=== PATIENT | male | born 1965 | race Asian ===

== ENCOUNTER 2019-10-12 22:12 | Emergency (ER) | payer OTHER ==
[~2019-10-12] VITALS: Ht 175.3 cm; Wt 102.1 kg
[2019-10-12] MEDS ORDERED: AMLO10 PO (22:21)
[2019-10-12] MEDS ORDERED: LOW DOSE ASPIRI81 M1 PO (22:21)
[2019-10-12] MEDS ORDERED: ATOR80 PO (22:21)
[2019-10-12] MEDS ORDERED: PANT20 PO (22:22)
[2019-10-12] MEDS ORDERED: NITR.4SL SL (22:22)
[2019-10-12 22:38] LABS: BASOPHILS ABSOLUTE AUTO 0.07 K/mm3 (0.00-0.23); BASOPHILS PERCENT AUTO 1 % (0-2); EOSINOPHILS ABSOLUTE AUTO 0.19 K/mm3 (0.00-0.68); EOSINOPHILS PERCENT AUTO 2 % (0-6); Hematocrit 46.2 % (37.0-53.0); Hemoglobin 16.1 g/dL (13.5-17.5); IMMATURE GRAN ABSOLUTE AUTO 0.04 K/mm3 (0.00-0.10); IMMATURE GRAN PERCENT AUTO 1 % (0-1); LYMPHOCYTES ABSOLUTE AUTO 2.72 K/mm3 (0.84-5.20); LYMPHOCYTES PERCENT AUTO 32 % (21-46); MONOCYTES ABSOLUTE AUTO 0.91 K/mm3 (0.16-1.47); MONOCYTES PERCENT AUTO 11 % (4-13); Mean Corpuscular HGB 32.1 pg (26.0-34.0); Mean Corpuscular HGB Conc 34.8 g/dL (31.5-36.5); Mean Corpuscular Volume 92 fL (80-100); Mean Platelet Volume 9.6 fL (9.1-12.4); NEUTROPHILS ABSOLUTE AUTO 4.48 K/mm3 (1.96-9.15); NEUTROPHILS PERCENT AUTO 53 % (41-73); Platelet Count 227 K/mm3 (150-400); RDW Coefficient Variation 12.3 % (11.7-14.2); RDW Standard Deviation 41.8 fL (35.1-46.3); Red Blood Cell Count 5.01 M/mm3 (4.30-5.90); White Blood Cell Count 8.41 K/mm3 (4.00-11.30)
[2019-10-12 22:58] LABS: Alanine Aminotransfer (ALT/SGP 35 U/L (12-78); Albumin, Blood 4.2 g/dL (3.4-5.0); Albumin/Globulin Ratio 1.1 (0.8-1.8); Alk Phos 124 U/L (50-136); Anion Gap 5 mmol/L (6-16); Aspartate Aminotrans (AST/SGOT 25 U/L (12-37); Bilirubin, Total 0.4 mg/dL (0.1-1.0); Blood Urea Nitrogen 21 mg/dL (8-24); Bun/Creatinine Ratio 18.8 (12.0-20.0); CO2, Blood 28 mmol/L (21-32); Calcium, Blood 8.8 mg/dL (8.5-10.1); Chloride, Blood 106 mmol/L (98-108); Creatinine, Blood 1.12 mg/dL (0.60-1.20); Globulin, Blood 3.9 g/dL (2.2-4.0); Glomerular Filtration Rate >60 (60-); Glucose, Blood 115 mg/dL (70-99); Potassium, Blood 4.2 mmol/L (3.5-5.5); Sodium, Blood 139 mmol/L (136-145); Total Protein, Blood 8.1 g/dL (6.4-8.2); Troponin I <0.015 ng/mL (0.000-0.040)
[2019-10-15] MEDS ORDERED: Zithromax250 MG PO (08:42)
== END 2019-10-13 02:40 | disposition home or self-care (01) ==
LOC: ER 22:12
PROVIDERS: Emergency Medicine
DX: R07.9 Chest pain, unspecified (principal); Z88.8 Allergy status to other drugs, medicaments and biological substances; Z79.899 Other long term (current) drug therapy; Z79.82 Long term (current) use of aspirin; Z87.891 Personal history of nicotine dependence
CPT/HCPCS: 71046; 80053; 84484; 85025; 93005; 93010; 96374; 96375; 99285-25; J1885; J2270; J2405

== ENCOUNTER 2020-03-27 10:45 | Day surgery (SDC) | payer OTHER ==
[~2020-03-27] VITALS: Ht 175.3 cm; Wt 102.4 kg
[~2020-03-27 10:45] MED LIST: AMLO10 PO; ATOR80 PO; LOW DOSE ASPIRI81 M1 PO; NITR.4SL SL; PANT20 PO; Zithromax250 MG PO
[2020-03-27] MEDS ORDERED: DUTOPROL (11:19)
[2020-03-27] MEDS ORDERED: EZET10 (11:20)
[2020-03-27] MEDS ORDERED: LISI20 (11:20)
[2020-03-27] MEDS ORDERED: Isosorbide Mono30 MG (11:22)
[2020-03-27] MEDS ORDERED: MICROZIDE12.5 MG (11:22)
== END 2020-03-27 12:50 | disposition home or self-care (01) ==
LOC: ORSCSDS 10:45
PROVIDERS: Internal Medicine Gastroenterology
PROC: 0DJD8ZZ Inspection of Lower Intestinal Tract, Via Natural or Artificial Opening Endoscopic (ICD-10-PCS; principal; 2020-03-27 12:00)
DX: R10.32 Left lower quadrant pain (principal); K64.8 Other hemorrhoids; I10 Essential (primary) hypertension; Z87.891 Personal history of nicotine dependence; J45.909 Unspecified asthma, uncomplicated; G47.33 Obstructive sleep apnea (adult) (pediatric); E66.9 Obesity, unspecified; Z68.33 Body mass index [BMI] 33.0-33.9, adult; Z79.899 Other long term (current) drug therapy
CPT/HCPCS: J2704; J7120

== ENCOUNTER 2020-06-17 02:06 | Emergency (ER) | payer OTHER ==
[~2020-06-17] VITALS: Ht 177.8 cm; Wt 102.1 kg
[~2020-06-17 02:06] MED LIST changes: +DUTOPROL; +EZET10; +Isosorbide Mono30 MG; +LISI20; +MICROZIDE12.5 MG
[2020-06-17] MEDS ORDERED: METO25ER PO (02:29)
[2020-06-17] MEDS ORDERED: ALBU90OI INH (02:29)
[2020-06-17] MEDS ORDERED: SPACER XX (02:30)
[2020-06-17] MEDS ORDERED: BENZ100A PO (03:33)
[2020-06-17] MEDS ORDERED: Zithromax250 MG PO (03:42)
== END 2020-06-17 03:45 | disposition home or self-care (01) ==
LOC: ER 02:06
DX: R05 Cough (principal); R06.02 Shortness of breath; R52 Pain, unspecified; J02.9 Acute pharyngitis, unspecified; I20.9 Angina pectoris, unspecified; Z79.899 Other long term (current) drug therapy; Z79.82 Long term (current) use of aspirin; Z87.891 Personal history of nicotine dependence; Z20.828 Contact with and (suspected) exposure to other viral communicable diseases
CPT/HCPCS: 71045; 99283-25; U0002

== ENCOUNTER 2020-10-18 00:19 | Emergency (ER) | payer OTHER ==
[~2020-10-18] VITALS: Ht 175.3 cm; Wt 81.7 kg
[~2020-10-18 00:19] MED LIST changes: +ALBU90OI INH; +BENZ100A PO; +METO25ER PO; +SPACER XX
[2020-10-18 01:09] LABS: BASOPHILS ABSOLUTE AUTO 0.07 K/mm3 (0.00-0.23); BASOPHILS PERCENT AUTO 1 % (0-2); EOSINOPHILS ABSOLUTE AUTO 0.56 K/mm3 (0.00-0.68); EOSINOPHILS PERCENT AUTO 7 % (0-6); Hematocrit 45.6 % (37.0-53.0); Hemoglobin 15.4 g/dL (13.5-17.5); IMMATURE GRAN ABSOLUTE AUTO 0.02 K/mm3 (0.00-0.10); IMMATURE GRAN PERCENT AUTO 0 % (0-1); LYMPHOCYTES PERCENT AUTO 37 % (21-46); MONOCYTES ABSOLUTE AUTO 0.83 K/mm3 (0.16-1.47); MONOCYTES PERCENT AUTO 10 % (4-13); Mean Corpuscular HGB 29.8 pg (26.0-34.0); Mean Corpuscular HGB Conc 33.8 g/dL (31.5-36.5); Mean Corpuscular Volume 88 fL (80-100); Mean Platelet Volume 10.1 fL (9.1-12.4); NEUTROPHILS ABSOLUTE AUTO 3.59 K/mm3 (1.96-9.15); NEUTROPHILS PERCENT AUTO 45 % (41-73); Platelet Count 179 K/mm3 (150-400); RDW Coefficient Variation 11.9 % (11.7-14.2); RDW Standard Deviation 38.9 fL (35.1-46.3); Red Blood Cell Count 5.16 M/mm3 (4.30-5.90); White Blood Cell Count 8.07 K/mm3 (4.00-11.30)
[2020-10-18 01:28] LABS: Alanine Aminotransfer (ALT/SGP 41 U/L (12-78); Albumin, Blood 3.6 g/dL (3.4-5.0); Albumin/Globulin Ratio 1.1 (0.8-1.8); Alk Phos 94 U/L (50-136); Anion Gap 6 mmol/L (6-16); Aspartate Aminotrans (AST/SGOT 34 U/L (12-37); Bilirubin, Total 0.5 mg/dL (0.1-1.0); Blood Urea Nitrogen 20 mg/dL (8-24); Bun/Creatinine Ratio 18.9 (12.0-20.0); CO2, Blood 26 mmol/L (21-32); Calcium, Blood 8.5 mg/dL (8.5-10.1); Chloride, Blood 108 mmol/L (98-108); Creatinine, Blood 1.06 mg/dL (0.60-1.20); Globulin, Blood 3.4 g/dL (2.2-4.0); Glomerular Filtration Rate >60 (60-); Glucose, Blood 114 mg/dL (70-99); Potassium, Blood 3.7 mmol/L (3.5-5.5); Sodium, Blood 140 mmol/L (136-145); Troponin I <0.015 ng/mL (0.000-0.040)
[2020-10-18] MEDS ORDERED: Prednisone20 MG PO (03:37)
[2020-10-19] MEDS ORDERED: Zithromax250 MG PO (08:40)
[2020-11-30] MEDS ORDERED: SPIRIVA RESPIMAT4 G3 (09:56)
== END 2020-10-18 03:52 | disposition home or self-care (01) ==
LOC: ER 00:19
PROVIDERS: Emergency Medicine
DX: R06.02 Shortness of breath (principal); Z79.82 Long term (current) use of aspirin; Z79.899 Other long term (current) drug therapy
CPT/HCPCS: 36415; 71046; 80053; 84484; 85025; 93005; 93010; 94640; 96374; 99285-25; A9270; J2930

== ENCOUNTER 2020-11-19 01:36 | Emergency (ER) | payer OTHER ==
[~2020-11-19] VITALS: Ht 175.3 cm; Wt 102.1 kg
[~2020-11-19 01:36] MED LIST changes: +Prednisone20 MG PO
[2020-11-19 03:55] LABS: BASOPHILS ABSOLUTE AUTO 0.09 K/mm3 (0.00-0.23); BASOPHILS PERCENT AUTO 1 % (0-2); EOSINOPHILS ABSOLUTE AUTO 0.65 K/mm3 (0.00-0.68); EOSINOPHILS PERCENT AUTO 9 % (0-6); Hematocrit 44.6 % (37.0-53.0); Hemoglobin 15.2 g/dL (13.5-17.5); IMMATURE GRAN ABSOLUTE AUTO 0.02 K/mm3 (0.00-0.10); IMMATURE GRAN PERCENT AUTO 0 % (0-1); LYMPHOCYTES ABSOLUTE AUTO 2.57 K/mm3 (0.84-5.20); LYMPHOCYTES PERCENT AUTO 35 % (21-46); MONOCYTES ABSOLUTE AUTO 0.89 K/mm3 (0.16-1.47); MONOCYTES PERCENT AUTO 12 % (4-13); Mean Corpuscular HGB 30.2 pg (26.0-34.0); Mean Corpuscular HGB Conc 34.1 g/dL (31.5-36.5); Mean Corpuscular Volume 89 fL (80-100); Mean Platelet Volume 9.9 fL (9.1-12.4); NEUTROPHILS ABSOLUTE AUTO 3.17 K/mm3 (1.96-9.15); NEUTROPHILS PERCENT AUTO 43 % (41-73); Platelet Count 183 K/mm3 (150-400); RDW Coefficient Variation 12.5 % (11.7-14.2); RDW Standard Deviation 40.3 fL (35.1-46.3); Red Blood Cell Count 5.03 M/mm3 (4.30-5.90); White Blood Cell Count 7.39 K/mm3 (4.00-11.30)
[2020-11-19 04:05] LABS: Alanine Aminotransfer (ALT/SGP 35 U/L (12-78); Albumin, Blood 3.6 g/dL (3.4-5.0); Alk Phos 105 U/L (50-136); Anion Gap 7 mmol/L (6-16); Aspartate Aminotrans (AST/SGOT 25 U/L (12-37); Bilirubin, Total 0.4 mg/dL (0.1-1.0); Blood Urea Nitrogen 16 mg/dL (8-24); Bun/Creatinine Ratio 17.1 (12.0-20.0); CO2, Blood 26 mmol/L (21-32); Calcium, Blood 8.7 mg/dL (8.5-10.1); Chloride, Blood 108 mmol/L (98-108); Creatinine, Blood 0.93 mg/dL (0.60-1.20); Globulin, Blood 3.5 g/dL (2.2-4.0); Glomerular Filtration Rate >60 (60-); Glucose, Blood 108 mg/dL (70-99); Magnesium, Blood 1.8 mg/dL (1.6-2.4); Potassium, Blood 3.9 mmol/L (3.5-5.5); Sodium, Blood 141 mmol/L (136-145); Total Protein, Blood 7.1 g/dL (6.4-8.2); Troponin I <0.015 ng/mL (0.000-0.040)
[2020-11-19] MEDS ORDERED: Prednisone50 MG PO (04:37)
[2020-11-30] MEDS ORDERED: SPIRIVA RESPIMAT4 G3 (09:56)
== END 2020-11-19 05:05 | disposition home or self-care (01) ==
LOC: ER 01:36
PROVIDERS: Emergency Medicine
DX: J45.901 Unspecified asthma with (acute) exacerbation (principal); I25.2 Old myocardial infarction; F17.210 Nicotine dependence, cigarettes, uncomplicated; Z79.82 Long term (current) use of aspirin; Z79.899 Other long term (current) drug therapy
CPT/HCPCS: 36415; 71045; 80053; 83735; 84484; 85025; 94640; 94644; 99284-25; A9270; J7512

== ENCOUNTER 2020-11-19 13:17 | Day surgery (SDC) | payer OTHER ==
[~2020-11-19 13:17] MED LIST changes: +Prednisone50 MG PO
--- NOTE | 2020-11-19 15:12 | NUR ---
11/19/20 1512 Sheridan Uriostegui (Annika SURGERY RESCHEDULED D/T PT BEING SEEN IN ED THIS AM.
[2020-11-30] MEDS ORDERED: SPIRIVA RESPIMAT4 G3 (09:56)
== END 2020-11-19 13:29 | disposition home or self-care (01) ==
LOC: ORSCSDS 13:17
DX: M24.573 Contracture, unspecified ankle (principal); M76.62 Achilles tendinitis, left leg; Z53.9 Procedure and treatment not carried out, unspecified reason
CPT/HCPCS: J0171

== ENCOUNTER 2020-12-05 00:53 | Emergency (ER) | payer OTHER ==
[~2020-12-05] VITALS: Ht 175.3 cm; Wt 102.1 kg
[~2020-12-05 00:53] MED LIST changes: +SPIRIVA RESPIMAT4 G3
[2020-12-05 01:37] LABS: BASOPHILS ABSOLUTE AUTO 0.08 K/mm3 (0.00-0.23); BASOPHILS PERCENT AUTO 1 % (0-2); EOSINOPHILS ABSOLUTE AUTO 0.73 K/mm3 (0.00-0.68); EOSINOPHILS PERCENT AUTO 8 % (0-6); Hematocrit 44.5 % (37.0-53.0); Hemoglobin 15.5 g/dL (13.5-17.5); IMMATURE GRAN ABSOLUTE AUTO 0.02 K/mm3 (0.00-0.10); IMMATURE GRAN PERCENT AUTO 0 % (0-1); LYMPHOCYTES ABSOLUTE AUTO 2.87 K/mm3 (0.84-5.20); LYMPHOCYTES PERCENT AUTO 33 % (21-46); MONOCYTES ABSOLUTE AUTO 0.89 K/mm3 (0.16-1.47); MONOCYTES PERCENT AUTO 10 % (4-13); Mean Corpuscular HGB Conc 34.8 g/dL (31.5-36.5); Mean Corpuscular Volume 89 fL (80-100); NEUTROPHILS ABSOLUTE AUTO 4.17 K/mm3 (1.96-9.15); NEUTROPHILS PERCENT AUTO 48 % (41-73); Platelet Count 172 K/mm3 (150-400); RDW Coefficient Variation 12.4 % (11.7-14.2); RDW Standard Deviation 40.2 fL (35.1-46.3); White Blood Cell Count 8.76 K/mm3 (4.00-11.30)
[2020-12-05 01:58] LABS: Alanine Aminotransfer (ALT/SGP 41 U/L (12-78); Albumin, Blood 3.6 g/dL (3.4-5.0); Alk Phos 101 U/L (50-136); Anion Gap 8 mmol/L (6-16); Aspartate Aminotrans (AST/SGOT 30 U/L (12-37); Bilirubin, Total 0.5 mg/dL (0.1-1.0); Blood Urea Nitrogen 21 mg/dL (8-24); Bun/Creatinine Ratio 20.4 (12.0-20.0); CO2, Blood 25 mmol/L (21-32); Calcium, Blood 8.6 mg/dL (8.5-10.1); Chloride, Blood 108 mmol/L (98-108); Creatinine, Blood 1.03 mg/dL (0.60-1.20); Globulin, Blood 3.6 g/dL (2.2-4.0); Glomerular Filtration Rate >60 (60-); Glucose, Blood 111 mg/dL (70-99); Potassium, Blood 3.6 mmol/L (3.5-5.5); Sodium, Blood 141 mmol/L (136-145); Total Protein, Blood 7.2 g/dL (6.4-8.2); Troponin I <0.015 ng/mL (0.000-0.040)
== END 2020-12-05 08:00 | disposition home or self-care (01) ==
LOC: ER 00:53
PROVIDERS: Student in an Organized Health Care Education/Training Program
DX: R07.9 Chest pain, unspecified (principal); R06.02 Shortness of breath; R05 Cough; I25.2 Old myocardial infarction; J45.909 Unspecified asthma, uncomplicated; F17.210 Nicotine dependence, cigarettes, uncomplicated; Z79.82 Long term (current) use of aspirin; Z79.899 Other long term (current) drug therapy
CPT/HCPCS: 71046; 80053; 84484; 85025; 93005; 93010; 99285-25

== ENCOUNTER 2020-12-07 07:14 | Day surgery (SDC) | payer OTHER ==
[~2020-12-07] VITALS: Ht 175.3 cm; Wt 100.8 kg
--- NOTE | 2020-12-07 09:34 | NUR ---
12/07/20 0934 Tequila Saleem BUPIVACAINE 0.5% 30MG MIXED WITH EPI 0.15ML TO CONSTITUTE BUPIVACAINE 0.5% 1:200,000 [facility]. 30MLS OF BUPIVACAINE 0.5% 1:200,[address] INJECTION [address] [facility] BY DR[address] SANTIAGO.
--- NOTE | 2020-12-07 10:14 | NUR ---
12/07/20 1014 Madhuri Jarrett PT. DENIES PAIN OR NAUSEA. PT. WITH GOOD CAP REFILL TO LEFT TOES. SPLINT/JOE INTACT, NO BLEEDING.
== END 2020-12-07 10:52 | disposition home or self-care (01) ==
LOC: ORSCSDS 07:14
PROVIDERS: Podiatrist Foot & Ankle Surgery
PROC: 0L8P0ZZ Division of Left Lower Leg Tendon, Open Approach (ICD-10-PCS; principal; 2020-12-07 08:30)
PROC: 0QBM0ZZ Excision of Left Tarsal, Open Approach (ICD-10-PCS; principal; 2020-12-07 08:30)
DX: M24.572 Contracture, left ankle (principal); M76.62 Achilles tendinitis, left leg; I10 Essential (primary) hypertension; I25.10 Atherosclerotic heart disease of native coronary artery without angina pectoris; J44.9 Chronic obstructive pulmonary disease, unspecified; G47.33 Obstructive sleep apnea (adult) (pediatric); E78.5 Hyperlipidemia, unspecified; Z79.899 Other long term (current) drug therapy; Z79.82 Long term (current) use of aspirin
CPT/HCPCS: C1713; J0171; J0690; J1100; J1885; J2001; J2250; J2370; J2405; J2704; J3010; J7120

== ENCOUNTER 2020-12-14 09:05 | Emergency (ER) | payer OTHER ==
[~2020-12-14] VITALS: Ht 175.3 cm; Wt 102.1 kg
[2020-12-14 09:55] LABS: BASOPHILS ABSOLUTE AUTO 0.04 K/mm3 (0.00-0.23); BASOPHILS PERCENT AUTO 1 % (0-2); EOSINOPHILS ABSOLUTE AUTO 0.37 K/mm3 (0.00-0.68); EOSINOPHILS PERCENT AUTO 5 % (0-6); Hematocrit 44.1 % (37.0-53.0); Hemoglobin 15.1 g/dL (13.5-17.5); IMMATURE GRAN ABSOLUTE AUTO 0.05 K/mm3 (0.00-0.10); IMMATURE GRAN PERCENT AUTO 1 % (0-1); LYMPHOCYTES ABSOLUTE AUTO 1.86 K/mm3 (0.84-5.20); LYMPHOCYTES PERCENT AUTO 23 % (21-46); MONOCYTES ABSOLUTE AUTO 1.07 K/mm3 (0.16-1.47); MONOCYTES PERCENT AUTO 13 % (4-13); Mean Corpuscular HGB 30.5 pg (26.0-34.0); Mean Corpuscular HGB Conc 34.2 g/dL (31.5-36.5); Mean Corpuscular Volume 89 fL (80-100); Mean Platelet Volume 9.5 fL (9.1-12.4); NEUTROPHILS ABSOLUTE AUTO 4.76 K/mm3 (1.96-9.15); NEUTROPHILS PERCENT AUTO 59 % (41-73); Platelet Count 213 K/mm3 (150-400); RDW Coefficient Variation 12.2 % (11.7-14.2); RDW Standard Deviation 39.6 fL (35.1-46.3); Red Blood Cell Count 4.95 M/mm3 (4.30-5.90); White Blood Cell Count 8.15 K/mm3 (4.00-11.30)
[2020-12-14 10:16] LABS: Alanine Aminotransfer (ALT/SGP 29 U/L (12-78); Albumin, Blood 3.4 g/dL (3.4-5.0); Albumin/Globulin Ratio 0.9 (0.8-1.8); Alk Phos 110 U/L (50-136); Anion Gap 4 mmol/L (6-16); Aspartate Aminotrans (AST/SGOT 26 U/L (12-37); Bilirubin, Total 1.1 mg/dL (0.1-1.0); Blood Urea Nitrogen 15 mg/dL (8-24); Bun/Creatinine Ratio 13.2 (12.0-20.0); CO2, Blood 29 mmol/L (21-32); Calcium, Blood 8.6 mg/dL (8.5-10.1); Chloride, Blood 105 mmol/L (98-108); Creatinine, Blood 1.14 mg/dL (0.60-1.20); Globulin, Blood 3.9 g/dL (2.2-4.0); Glomerular Filtration Rate >60 (60-); Glucose, Blood 95 mg/dL (70-99); Sodium, Blood 138 mmol/L (136-145); Total Protein, Blood 7.3 g/dL (6.4-8.2)
[2020-12-14] MEDS ORDERED: Valium5 MG PO (11:22)
== END 2020-12-14 11:54 | disposition home or self-care (01) ==
LOC: ER 09:05
PROVIDERS: Emergency Medicine
DX: M79.605 Pain in left leg (principal); I25.2 Old myocardial infarction; F17.210 Nicotine dependence, cigarettes, uncomplicated; Z79.82 Long term (current) use of aspirin; Z79.899 Other long term (current) drug therapy
CPT/HCPCS: 36415; 73590; 80053; 85025; 93971; 96374; 99284-25; J3360

== ENCOUNTER 2023-04-13 06:06 | Day surgery (SDC) | payer BC, OTHER ==
[~2023-04-13] VITALS: Ht 175.3 cm; Wt 101.5 kg
[2023-04-13] VITALS (8 sets, daily range): BP systolic 104–150; BP diastolic 72–88
[~2023-04-13 06:06] MED LIST changes: -EZET10; +EZET10 PO; -Isosorbide Mono30 MG; +Isosorbide Mono30 MG PO; -LISI20; +LISI20 PO; -MICROZIDE12.5 MG; +MICROZIDE12.5 MG PO; +Valium5 MG PO
--- NOTE | 2023-04-13 07:57 | NUR ---
Ambulatory in Day Surgery Patient confirms NPO status and agrees with scheduled surgery. Pre-Op teaching done. Pt verbalizes understanding. History, Chart, Medications and Allergies reviewed before start of procedure.Patient States Post-Procedure ride home has been arranged.
--- NOTE | 2023-04-13 08:53 | NUR ---
REPORT RECIEVED. PT SITTING UP IN BED TOLERATING PO FLUIDS. DENIES PAIN. ROOM AIR. VSS.
--- NOTE | 2023-04-13 09:20 | NUR ---
Patient up to Ambulate independently. Gait steady. Discharge instructions reviewed with patient. Patient verbalizes understanding. Copy given to patient to take home. Dressing to procedure site clean, dry, intact with no visible drainage, swelling, erythema or bruising noted. States pain level is tolerable, hes comfortable
--- NOTE | 2023-04-13 09:47 | NUR ---
Discharged via wheelchair to private car for ride home.
== END 2023-04-13 09:43 | disposition home or self-care (01) ==
LOC: ORSCMMR 06:06 → ORD 07:30 → ORSCMMR 07:30
PROVIDERS: Surgery
PROC: 0WUF0JZ Supplement Abdominal Wall with Synthetic Substitute, Open Approach (ICD-10-PCS; principal; 2023-04-13 07:30)
DX: K42.0 Umbilical hernia with obstruction, without gangrene (principal); I10 Essential (primary) hypertension; G47.33 Obstructive sleep apnea (adult) (pediatric); I25.10 Atherosclerotic heart disease of native coronary artery without angina pectoris; E78.5 Hyperlipidemia, unspecified; K21.9 Gastro-esophageal reflux disease without esophagitis; K76.0 Fatty (change of) liver, not elsewhere classified; J44.9 Chronic obstructive pulmonary disease, unspecified; Z87.891 Personal history of nicotine dependence; Z79.899 Other long term (current) drug therapy; Z79.82 Long term (current) use of aspirin; E66.9 Obesity, unspecified; Z68.33 Body mass index [BMI] 33.0-33.9, adult
CPT/HCPCS: A9270; C1781; J0690; J1100; J1885; J2250; J2405; J2704; J3010; J7120

== ENCOUNTER 2023-07-04 19:32 | Emergency (ER) | payer BC, OTHER ==
[~2023-07-04] VITALS: Ht 175.3 cm; Wt 104.3 kg
[2023-07-04 20:14] LABS: BASOPHILS ABSOLUTE AUTO 0.09 K/mm3 (0.00-0.23); BASOPHILS PERCENT AUTO 1 % (0-2); EOSINOPHILS ABSOLUTE AUTO 0.45 K/mm3 (0.00-0.68); EOSINOPHILS PERCENT AUTO 6 % (0-6); Hematocrit 43.9 % (37.0-53.0); Hemoglobin 14.9 g/dL (13.5-17.5); IMMATURE GRAN ABSOLUTE AUTO 0.01 K/mm3 (0.00-0.10); IMMATURE GRAN PERCENT AUTO 0 % (0-1); LYMPHOCYTES PERCENT AUTO 39 % (21-46); MONOCYTES PERCENT AUTO 11 % (4-13); Mean Corpuscular HGB 30.5 pg (26.0-34.0); Mean Corpuscular HGB Conc 33.9 g/dL (31.5-36.5); Mean Corpuscular Volume 90 fL (80-100); NEUTROPHILS ABSOLUTE AUTO 3.12 K/mm3 (1.96-9.15); NEUTROPHILS PERCENT AUTO 43 % (41-73); Platelet Count 187 K/mm3 (150-400); RDW Coefficient Variation 12.4 % (11.7-14.2); RDW Standard Deviation 40.1 fL (35.1-46.3); Red Blood Cell Count 4.89 M/mm3 (4.30-5.90); White Blood Cell Count 7.27 K/mm3 (4.00-11.30)
[2023-07-04] MEDS ORDERED: EZETIMIBE10 M6 PO (20:14)
[2023-07-04] MEDS ORDERED: ISOSORBIDE MONO30 MG PO (20:14)
[2023-07-04] MEDS ORDERED: LIPITOR80 MG PO (20:14)
[2023-07-04] MEDS ORDERED: HYDCHL25 PO (20:14)
[2023-07-04] MEDS ORDERED: METOPROLOL SUCC25 MG PO (20:14)
[2023-07-04] MEDS ORDERED: LISI20 PO (20:14)
[2023-07-04] MEDS ORDERED: EZET10 PO (20:16)
[2023-07-04 20:40] LABS: Albumin, Blood 3.7 g/dL (3.4-5.0); Bilirubin, Total 0.6 mg/dL (0.1-1.0); Bun/Creatinine Ratio 18.1 (12.0-20.0); Calcium, Blood 8.3 mg/dL (8.5-10.1); Creatinine, Blood 0.94 mg/dL (0.60-1.20); Globulin, Blood 3.6 g/dL (2.2-4.0); Total Protein, Blood 7.3 g/dL (6.4-8.2)
[2023-07-04] MEDS ORDERED: NITR.4SL SL (21:32)
[2023-07-04 21:45] VITALS: BP 122/79
== END 2023-07-04 21:45 | disposition home or self-care (01) ==
LOC: ER 19:32
PROVIDERS: Emergency Medicine
DX: I25.110 Atherosclerotic heart disease of native coronary artery with unstable angina pectoris (principal); I25.2 Old myocardial infarction; I10 Essential (primary) hypertension; E78.5 Hyperlipidemia, unspecified; Z87.891 Personal history of nicotine dependence; Z79.899 Other long term (current) drug therapy
CPT/HCPCS: 71045; 80053; 84484; 85025; 93005; 93010; 99285-25

== ENCOUNTER 2024-02-03 18:48 | Emergency (ER) | payer BC ==
[~2024-02-03] VITALS: Ht 175.3 cm; Wt 99.8 kg
[~2024-02-03 18:48] MED LIST changes: +EZETIMIBE10 M6 PO; +HYDCHL25 PO; +ISOSORBIDE MONO30 MG PO; +LIPITOR80 MG PO; +METOPROLOL SUCC25 MG PO
[2024-02-03 19:26] LABS: BASOPHILS ABSOLUTE AUTO 0.06 K/mm3 (0.00-0.23); BASOPHILS PERCENT AUTO 1 % (0-2); EOSINOPHILS ABSOLUTE AUTO 0.35 K/mm3 (0.00-0.68); EOSINOPHILS PERCENT AUTO 5 % (0-6); Hemoglobin 15.8 g/dL (13.5-17.5); IMMATURE GRAN ABSOLUTE AUTO 0.02 K/mm3 (0.00-0.10); IMMATURE GRAN PERCENT AUTO 0 % (0-1); LYMPHOCYTES ABSOLUTE AUTO 2.51 K/mm3 (0.84-5.20); LYMPHOCYTES PERCENT AUTO 34 % (21-46); MONOCYTES ABSOLUTE AUTO 0.69 K/mm3 (0.16-1.47); MONOCYTES PERCENT AUTO 9 % (4-13); Mean Corpuscular HGB 30.9 pg (26.0-34.0); Mean Corpuscular HGB Conc 35.1 g/dL (31.5-36.5); Mean Corpuscular Volume 88 fL (80-100); Mean Platelet Volume 10.4 fL (9.1-12.4); NEUTROPHILS ABSOLUTE AUTO 3.84 K/mm3 (1.96-9.15); NEUTROPHILS PERCENT AUTO 51 % (41-73); Platelet Count 204 K/mm3 (150-400); RDW Coefficient Variation 12.3 % (11.7-14.2); RDW Standard Deviation 39.6 fL (35.1-46.3); Red Blood Cell Count 5.12 M/mm3 (4.30-5.90); White Blood Cell Count 7.47 K/mm3 (4.00-11.30)
[2024-02-03 20:00] LABS: Albumin, Blood 3.8 g/dL (3.4-5.0); Albumin/Globulin Ratio 1.1 (0.8-1.8); Bilirubin, Total 0.6 mg/dL (0.1-1.0); Bun/Creatinine Ratio 20.8 (12.0-20.0); Creatinine, Blood 1.06 mg/dL (0.60-1.20); Globulin, Blood 3.6 g/dL (2.2-4.0); Potassium, Blood 3.9 mmol/L (3.5-5.5); Total Protein, Blood 7.4 g/dL (6.4-8.2)
[2024-02-03] MEDS ORDERED: PROAIR RESPICL90 MCG INH (21:43)
[2024-02-03] MEDS ORDERED: Aspir 8181 MG PO (21:57)
[2024-02-03] MEDS ORDERED: GABA100 PO (21:59)
[2024-02-03 23:30] VITALS: BP 117/61
== END 2024-02-04 | disposition home or self-care (01) ==
LOC: ER 18:48
PROVIDERS: Nurse Practitioner
DX: R07.89 Other chest pain (principal); R10.13 Epigastric pain; Z79.899 Other long term (current) drug therapy; Z79.82 Long term (current) use of aspirin; J45.909 Unspecified asthma, uncomplicated; I25.2 Old myocardial infarction; E78.5 Hyperlipidemia, unspecified; I10 Essential (primary) hypertension
CPT/HCPCS: 71046; 76705; 80053; 83690; 84484; 85025; 85379; 93005; 93010; 99285-25

== ENCOUNTER 2024-05-04 11:45 | Observation (INO) | payer BC ==
[~2024-05-04] VITALS: Ht 175.3 cm; Wt 101.6 kg
[~2024-05-04 11:45] MED LIST changes: +Aspir 8181 MG PO; +GABA100 PO; +PROAIR RESPICL90 MCG INH
[2024-05-04 13:09] LABS: BASOPHILS ABSOLUTE AUTO 0.06 K/mm3 (0.00-0.23); BASOPHILS PERCENT AUTO 1 % (0-2); EOSINOPHILS ABSOLUTE AUTO 0.32 K/mm3 (0.00-0.68); EOSINOPHILS PERCENT AUTO 5 % (0-6); Hematocrit 44.8 % (37.0-53.0); Hemoglobin 15.9 g/dL (13.5-17.5); IMMATURE GRAN ABSOLUTE AUTO 0.01 K/mm3 (0.00-0.10); IMMATURE GRAN PERCENT AUTO 0 % (0-1); LYMPHOCYTES ABSOLUTE AUTO 2.04 K/mm3 (0.84-5.20); LYMPHOCYTES PERCENT AUTO 33 % (21-46); MONOCYTES ABSOLUTE AUTO 0.78 K/mm3 (0.16-1.47); MONOCYTES PERCENT AUTO 13 % (4-13); Mean Corpuscular HGB 30.8 pg (26.0-34.0); Mean Corpuscular HGB Conc 35.5 g/dL (31.5-36.5); Mean Corpuscular Volume 87 fL (80-100); Mean Platelet Volume 10.5 fL (9.1-12.4); NEUTROPHILS ABSOLUTE AUTO 2.93 K/mm3 (1.96-9.15); NEUTROPHILS PERCENT AUTO 48 % (41-73); Platelet Count 199 K/mm3 (150-400); RDW Coefficient Variation 12.7 % (11.7-14.2); RDW Standard Deviation 39.8 fL (35.1-46.3); Red Blood Cell Count 5.16 M/mm3 (4.30-5.90); White Blood Cell Count 6.14 K/mm3 (4.00-11.30)
[2024-05-04 13:29] LABS: Albumin, Blood 3.9 g/dL (3.4-5.0); Bilirubin, Total 0.9 mg/dL (0.1-1.0); Bun/Creatinine Ratio 21.7 (12.0-20.0); Calcium, Blood 8.8 mg/dL (8.5-10.1); Creatinine, Blood 0.88 mg/dL (0.60-1.20); Globulin, Blood 3.8 g/dL (2.2-4.0); Potassium, Blood 3.6 mmol/L (3.5-5.5); Total Protein, Blood 7.7 g/dL (6.4-8.2)
[2024-05-04] MEDS ORDERED: Acetaminophen 325 MG TABLET PO PRN (14:40)
[2024-05-04] MEDS ORDERED: Nitroglycerin 0.4 MG SUBL SL PRN (14:40)
[2024-05-04] MEDS ORDERED: Gabapentin 100 MG Cap PO PRN (14:45)
[2024-05-04] MEDS ORDERED: Albuterol HFA200 ACT/6.7 GM INH INH PRN (14:55)
[2024-05-04 15:00] VITALS: BP 131/91
--- NOTE | 2024-05-04 18:41 | NUR ---
SHIFT SUMMARY NEURO: WNL, INTERMITTENT NEUROPATHY PER PT CARDIAC: SINUS MARIELA, SLIGHT FERNANDA/WAXY APPEARANCE TO BLE, TRACE EDEMA, DENIES CP. C/O FREQUENT URINATION AT NIGHT AND COUGH WHEN SLEEPING. VITALS STABLE AT THIS TIME. PER PT, CHRONIC CP SINCE ND IN 2016, UNABLE TO PERFORM PCI D/T "CALLOUS" PER PT. PER PT BOUTS OF CP AND SOB INCREASED IN OCTOBER, WHERE A FULL WORK UP WAS COMPLETED WITH SERENE. LUNGS: WNL GI/: WNL, LAST BM 05/04/24 SKIN: INTACT, FERNANDA BLE
[2024-05-04 19:35] VITALS: BP 136/82
--- NOTE | 2024-05-04 19:43 | NUR ---
ASSUMPTION OF CARE Pt resting in hospital bed, oriented x4, vital signs stable, pt on room air, monitor shows sinus jamal with HR 50's. Pt denies chest pain or shortness of breath at this time. Pt tolerating PO intake, aware of NPO status at midnight. Pt denies issues. Pt is independent in room and ambulates with steady gait.
[2024-05-04] MEDS ORDERED: Ezetimibe 10 MG Tab PO SCH (21:00)
[2024-05-04] MEDS ORDERED: Isosorbide Mononitrate 30 MG TABCR PO SCH (21:00)
[2024-05-05] VITALS (11 sets, daily range): BP systolic 101–143; BP diastolic 70–97
[2024-05-05 03:40] LABS: BASOPHILS ABSOLUTE AUTO 0.05 K/mm3 (0.00-0.23); BASOPHILS PERCENT AUTO 1 % (0-2); EOSINOPHILS ABSOLUTE AUTO 0.35 K/mm3 (0.00-0.68); EOSINOPHILS PERCENT AUTO 4 % (0-6); Hematocrit 43.9 % (37.0-53.0); Hemoglobin 15.3 g/dL (13.5-17.5); IMMATURE GRAN ABSOLUTE AUTO 0.03 K/mm3 (0.00-0.10); IMMATURE GRAN PERCENT AUTO 0 % (0-1); LYMPHOCYTES ABSOLUTE AUTO 2.14 K/mm3 (0.84-5.20); LYMPHOCYTES PERCENT AUTO 27 % (21-46); MONOCYTES ABSOLUTE AUTO 0.88 K/mm3 (0.16-1.47); MONOCYTES PERCENT AUTO 11 % (4-13); Mean Corpuscular HGB 30.4 pg (26.0-34.0); Mean Corpuscular HGB Conc 34.9 g/dL (31.5-36.5); Mean Corpuscular Volume 87 fL (80-100); Mean Platelet Volume 10.3 fL (9.1-12.4); NEUTROPHILS ABSOLUTE AUTO 4.57 K/mm3 (1.96-9.15); NEUTROPHILS PERCENT AUTO 57 % (41-73); Platelet Count 196 K/mm3 (150-400); RDW Coefficient Variation 12.8 % (11.7-14.2); RDW Standard Deviation 40.3 fL (35.1-46.3); Red Blood Cell Count 5.04 M/mm3 (4.30-5.90); White Blood Cell Count 8.02 K/mm3 (4.00-11.30)
[2024-05-05 04:05] LABS: Bun/Creatinine Ratio 20.1 (12.0-20.0); Calcium, Blood 8.6 mg/dL (8.5-10.1); Creatinine, Blood 0.95 mg/dL (0.60-1.20); Potassium, Blood 3.6 mmol/L (3.5-5.5)
--- NOTE | 2024-05-05 06:00 | NUR ---
SHIFT SUMMARY No acute events overnight, pt remains alert and oriented with stable vital signs. Pt NPO since apporx 2200 last night, plan for angiogram today. Pt denie GI/ issues, remains independent in the room.
[2024-05-05] MEDS ORDERED: Heparin Sodium 1000 Units/ML 10ML MDV ONE ×2 (06:41→07:53)
[2024-05-05] MEDS ORDERED: Nitroglycerin 2 MG/20 ML BTL ONE (06:41)
[2024-05-05] MEDS ORDERED: NS 1,000 ML IV ONE ×2 (06:41→06:50)
[2024-05-05] MEDS ORDERED: Verapamil HCL 2.5 MG/ML 2ML Injection ONE (06:41)
[2024-05-05] MEDS ORDERED: NS 250 ML IV ONE (06:41)
--- NOTE | 2024-05-05 07:17 | NUR ---
Pt has gone to refuse laborer for angiogram.
[2024-05-05] MEDS ORDERED: FentaNYL Citrate 50 MCG/ML 2 ML Injection ONE (07:22)
[2024-05-05] MEDS ORDERED: Midazolam HCl 1MG / ML 2ML Vial ONE (07:22)
--- NOTE | 2024-05-05 08:25 | NUR ---
Pt returned from chemistry lab instructor. Right radial arterial access site noted to be WNL. White immobilizer board placed again over the forearm and pt given the standard activity restriction instructions for recovery. He verbalized understanding. Dr. Santana here to talk with the patient about the plan of care. Pt needs to have CABG surgery; he may possibly be discharged today to follow up for surgery, but enamel machine operator will update us after he talks with cardiovascular surgeon. Meanwhile pt is without any discomfort/pain/dyspnea at rest in bed. Call light within his reach.
--- NOTE | 2024-05-05 08:36 | NUR ---
Pt returned from labor trainer. Right radial arterial access site noted to be WNL. White immobilizer board placed again over the forearm and pt given the standard activity restriction instructions for recovery. He verbalized understanding. Dr. Santana here to talk with the patient about the plan of care. Pt needs to have specialized intervention; he may discharged today after the site is recovered for an outpatient referral. Meanwhile pt is without any dismfort/pain/dyspnea at rest in bed. Call light within his reach.
[2024-05-05] MEDS ORDERED: Aspirin 81 MG TabEC PO SCH (09:00)
[2024-05-05] MEDS ORDERED: Metoprolol Succinate 25 MG TABCR PO SCH (09:00)
[2024-05-05] MEDS ORDERED: Lisinopril 20 MG Tab PO SCH (09:00)
[2024-05-05] MEDS ORDERED: HydroCHLOROthiazide 25 mg Tab PO SCH (09:00)
[2024-05-05] MEDS ORDERED: Isosorbide Mononitrate 60 MG TABCR PO SCH ×2 (09:00)
[2024-05-05] MEDS ORDERED: Atorvastatin 40 MG Tab PO SCH (09:00)
--- NOTE | 2024-05-05 11:31 | NUR ---
TR BAND DEFLATED ORDERED. WINDOW DRESSING IN PLACE, ARM BOARD REAPPLIED. NO SIGNS OF BLEEDING AT SITE. PULSES PRESENT.
[2024-05-05] MEDS ORDERED: ISOSORBIDE MONO30 MG PO (12:42)
[2024-05-05] MEDS ORDERED: Heparin Sodium,Porcine 5,000 UNIT/0.5 ML SDV SC SCH (14:00)
== END 2024-05-05 13:20 | disposition home or self-care (01) ==
LOC: ER 11:45 → PCU 11:46
PROVIDERS: Emergency Medicine; ADMIT Internal Medicine
DX: I25.119 Atherosclerotic heart disease of native coronary artery with unspecified angina pectoris (principal); I25.84 Coronary atherosclerosis due to calcified coronary lesion; I25.82 Chronic total occlusion of coronary artery; I25.2 Old myocardial infarction; J44.9 Chronic obstructive pulmonary disease, unspecified; I10 Essential (primary) hypertension; E78.5 Hyperlipidemia, unspecified; G47.33 Obstructive sleep apnea (adult) (pediatric); R73.03 Prediabetes; Z79.82 Long term (current) use of aspirin; Z79.899 Other long term (current) drug therapy
CPT/HCPCS: 36415; 71045; 76937; 80048; 80053; 83880; 84484; 85025; 93458; 94760; 99152; 99285-25; A9270; C1769; C1894; G0378; J1644; J2250; J3010; J7030; J7050; Q9967

== ENCOUNTER 2024-11-09 19:50 | Observation (INO) | payer BC, OTHER ==
[~2024-11-09] VITALS: Ht 172.7 cm; Wt 99.5 kg
[2024-11-09 20:36] LABS: BASOPHILS ABSOLUTE AUTO 0.06 K/mm3 (0.00-0.23); BASOPHILS PERCENT AUTO 1 % (0-2); EOSINOPHILS ABSOLUTE AUTO 0.28 K/mm3 (0.00-0.68); EOSINOPHILS PERCENT AUTO 4 % (0-6); Hemoglobin 15.7 g/dL (13.5-17.5); IMMATURE GRAN ABSOLUTE AUTO 0.03 K/mm3 (0.00-0.10); IMMATURE GRAN PERCENT AUTO 0 % (0-1); LYMPHOCYTES ABSOLUTE AUTO 2.69 K/mm3 (0.84-5.20); LYMPHOCYTES PERCENT AUTO 34 % (21-46); MONOCYTES ABSOLUTE AUTO 0.93 K/mm3 (0.16-1.47); MONOCYTES PERCENT AUTO 12 % (4-13); Mean Corpuscular HGB 30.5 pg (26.0-34.0); Mean Corpuscular HGB Conc 34.9 g/dL (31.5-36.5); Mean Corpuscular Volume 88 fL (80-100); Mean Platelet Volume 10.2 fL (9.1-12.4); NEUTROPHILS ABSOLUTE AUTO 4.02 K/mm3 (1.96-9.15); NEUTROPHILS PERCENT AUTO 50 % (41-73); Platelet Count 190 K/mm3 (150-400); RDW Coefficient Variation 12.7 % (11.7-14.2); RDW Standard Deviation 40.5 fL (35.1-46.3); Red Blood Cell Count 5.14 M/mm3 (4.30-5.90); White Blood Cell Count 8.01 K/mm3 (4.00-11.30)
[2024-11-09 20:55] LABS: Albumin, Blood 3.8 g/dL (3.4-5.0); Albumin/Globulin Ratio 1.1 (0.8-1.8); Bilirubin, Total 0.7 mg/dL (0.1-1.0); Bun/Creatinine Ratio 17.6 (12.0-20.0); Calcium, Blood 8.7 mg/dL (8.5-10.1); Creatinine, Blood 0.97 mg/dL (0.60-1.20); Globulin, Blood 3.6 g/dL (2.2-4.0); Potassium, Blood 3.4 mmol/L (3.5-5.5); Total Protein, Blood 7.4 g/dL (6.4-8.2)
[2024-11-09] MEDS ORDERED: Morphine Sulfate 4 MG/1 ML Injection IV ONE (22:15)
[2024-11-10] VITALS (18 sets, daily range): BP systolic 136–178; BP diastolic 76–100
[2024-11-10] MEDS ORDERED: CefTRIAXone Sodium 1,000 MG in NS 100 ML IV ONE (00:20)
[2024-11-10] MEDS ORDERED: MetroNIDAZOLE 500MG/NS 100 ml 100 ML IV ONE (00:20)
[2024-11-10] MEDS ORDERED: Naloxone HCl 0.4MG / ML 1ML Vial IV PRN (01:15)
[2024-11-10] MEDS ORDERED: Morphine Sulfate 4 MG/1 ML Injection IV PRN (01:15)
[2024-11-10] MEDS ORDERED: Acetaminophen 325 MG TABLET PO PRN (01:15)
[2024-11-10] MEDS ORDERED: Ondansetron HCl 2 MG / ML 2ML Vial IV PRN ×2 (01:15→18:20)
[2024-11-10] MEDS ORDERED: FLU VACC TS2024-25(6MOS UP)/PF 45 MCG/0.5 ML SYRINGE IM ONE (01:15)
[2024-11-10] MEDS ORDERED: Potassium Chloride 40 MEQ in NS 250 ML IV ONE (01:35)
[2024-11-10] MEDS ORDERED: Lactated Ringer's 1,000 ML IV SCH ×2 (02:00→13:15)
[2024-11-10] MEDS ORDERED: CLOP75 PO (02:29)
[2024-11-10 05:32] LABS: BASOPHILS ABSOLUTE AUTO 0.05 K/mm3 (0.00-0.23); BASOPHILS PERCENT AUTO 1 % (0-2); EOSINOPHILS ABSOLUTE AUTO 0.28 K/mm3 (0.00-0.68); EOSINOPHILS PERCENT AUTO 4 % (0-6); Hematocrit 41.4 % (37.0-53.0); Hemoglobin 14.8 g/dL (13.5-17.5); IMMATURE GRAN ABSOLUTE AUTO 0.02 K/mm3 (0.00-0.10); IMMATURE GRAN PERCENT AUTO 0 % (0-1); LYMPHOCYTES PERCENT AUTO 32 % (21-46); MONOCYTES ABSOLUTE AUTO 0.94 K/mm3 (0.16-1.47); MONOCYTES PERCENT AUTO 13 % (4-13); Mean Corpuscular HGB 31.2 pg (26.0-34.0); Mean Corpuscular HGB Conc 35.7 g/dL (31.5-36.5); Mean Corpuscular Volume 87 fL (80-100); Mean Platelet Volume 10.1 fL (9.1-12.4); NEUTROPHILS ABSOLUTE AUTO 3.62 K/mm3 (1.96-9.15); NEUTROPHILS PERCENT AUTO 50 % (41-73); Platelet Count 152 K/mm3 (150-400); RDW Coefficient Variation 12.7 % (11.7-14.2); RDW Standard Deviation 40.6 fL (35.1-46.3); Red Blood Cell Count 4.75 M/mm3 (4.30-5.90); White Blood Cell Count 7.21 K/mm3 (4.00-11.30)
[2024-11-10 06:09] LABS: Albumin, Blood 3.5 g/dL (3.4-5.0); Bilirubin, Total 0.5 mg/dL (0.1-1.0); Calcium, Blood 8.5 mg/dL (8.5-10.1); Creatinine, Blood 0.88 mg/dL (0.60-1.20); Globulin, Blood 3.4 g/dL (2.2-4.0); Potassium, Blood 3.9 mmol/L (3.5-5.5); Total Protein, Blood 6.9 g/dL (6.4-8.2)
--- NOTE | 2024-11-10 06:24 | NUR ---
SHIFT SUMMARY PT A/OX4 WITH VSS. HR SB AT 49 BPM, PER CERTIFIED MEDICAL TECHNICIAN. ON RA, DENIES SOB. PAIN MANAGED PER EMAR. IS NPO. IND IN ROOM AND ABLE TO MAKE NEEDS KNOWN. IVF AND ABX INFUSED PER ORDER. AWAITING SURGICAL CONSULT. PT CURRENTLY RESTING IN BED WITH EYES CLOSED AND RESPIRATIONS EVEN/UNLABORED. ABLE TO MAKE NEEDS KNOWN. WILL GIVE REPORT TO ONCOMING RN.
[2024-11-10] MEDS ORDERED: MetroNIDAZOLE 500MG/NS 100 ml 100 ML IV SCH (08:00)
[2024-11-10] MEDS ORDERED: Docusate Sodium 100 MG Cap PO SCH (09:00)
[2024-11-10] MEDS ORDERED: Lactobacil 2-S.Thermo-Bifido 1 1 Cap PO SCH (09:00)
--- NOTE | 2024-11-10 09:33 | NUR ---
MORNING NOTE THIS RN ASSUMED CARE AT APPROX 0715. PATIENT ALERT AND ORIENTED X4. INDEPENDENT IN ROOM. COMMUNICATES NEEDS EFFECTIVELY. VSS. REPORTING 2/10 RLQ PAIN. DENIES N/V/D. IVF INFUSING PER EMAR. MD LOCK[place]OD AT BEDSIDE THIS MORNING - PLAN FOR TD GOFF THIS EVENING. PATIENT TO BE STRICT NPO AFTER 1200. CALL LIGHT IN REACH.
[2024-11-10] MEDS ORDERED: Indocyanine Green 25 MG Vial IV ONE (13:15)
[2024-11-10] MEDS ORDERED: Nitroglycerin 0.4 MG SUBL SL PRN (14:15)
[2024-11-10] MEDS ORDERED: Albuterol HFA200 ACT/6.7 GM INH INH PRN (14:25)
--- NOTE | 2024-11-10 15:16 | NUR ---
PATIENT TRANSFERRED OFF UNIT FOR PROCEDURE AT APPROX 1510
[2024-11-10] MEDS ORDERED: Bupivacaine 0.5% HCl 5 MG/ML 30MLVIAL ONE (16:13)
[2024-11-10] MEDS ORDERED: propofoL 40 ML IV ONE (16:36)
[2024-11-10] MEDS ORDERED: FentaNYL Citrate 50 MCG/ML 2 ML Injection ONE ×2 (16:41→19:27)
[2024-11-10] MEDS ORDERED: Midazolam HCl 1MG / ML 2ML Vial ONE (16:41)
[2024-11-10] MEDS ORDERED: Ondansetron HCl 2 MG / ML 2ML Vial ONE (17:04)
[2024-11-10] MEDS ORDERED: Dexamethasone Sod Phos 10 MG/ML 1ML VIAL ONE (17:04)
[2024-11-10] MEDS ORDERED: Rocuronium Bromide 10 MG/ML 5ML Injection IV ONE (17:04)
--- NOTE | 2024-11-10 17:25 | NUR ---
11/10/24 1725 Carli Sanchez NO PREOP ANTIBIOTICS ORDERED PER PATIENT IS ON SCHEDULED ANTIBIOTICS.
--- NOTE | 2024-11-10 17:50 | NUR ---
SHIFT SUMMARY NO ACUTE EVENTS PRIOR TO TRANSFER. VSS. PATIENT INDEPENDENT IN ROOM. VOIDING. REPORTING 2/10 ABD PAIN - DECLINED MANAGEMENT PER EMAR THROUGHOUT AFTERNOON. DENIES N/V/D. PATIENT REMAINS OUT OF ROOM AT THIS TIME FOR PROCEDURE.
[2024-11-10] MEDS ORDERED: Sugammadex Sodium 200 MG/2ML SDV (100 MG/ML) ONE (18:08)
[2024-11-10] MEDS ORDERED: Albuterol 2.5 MG/3 ML VIAL INH PRN (18:15)
[2024-11-10] MEDS ORDERED: FentaNYL Citrate 50 MCG/ML 2 ML Injection IV PRN (18:20)
[2024-11-10] MEDS ORDERED: HYDROmorphone HCl/Pf 1MG SYR IV PRN (18:20)
[2024-11-10] MEDS ORDERED: Haloperidol Lactate Inj. 5 MG/ML Injection IV PRN (18:20)
[2024-11-10] MEDS ORDERED: HYDROmorphone HCl/Pf 1MG SYR ONE (19:22)
[2024-11-10] MEDS ORDERED: CefTRIAXone Sodium 1,000 MG in NS 100 ML IV SCH (21:00)
[2024-11-10] MEDS ORDERED: Metoprolol Succinate 25 MG TABCR PO SCH (21:00)
[2024-11-10] MEDS ORDERED: Ezetimibe 10 MG Tab PO SCH (21:00)
--- NOTE | 2024-11-10 23:57 | NUR ---
POST-OP NOTE PT ARRIVED TO UNIT FROM PACU POST LAP APPY. ABD INCISIONS CDI X 4, CLOSED WITH EXOFIN. NO DRAINAGED NOTED. IV SL. DENIES PAIN, N/V, SOB, CHEST PAIN OR PRESSURE. IS ABLE TO WIGGLE FINGERS AND TOES. PER TENDER COORDINATOR, HR NSR AT 65 BPM. SERA SMALL AMOUNTS OF PO INTAKE, REPORTS APPETITE. ELEVATED BP, MEDICATED PER EMAR. PT CURRENTLY RESTING IN BED WITH CALL LIGHT IN REACH.
[2024-11-11] MEDS ORDERED: OxyCODONE HCL 5 MG TAB PO PRN (00:30)
[2024-11-11 03:05] VITALS: BP 135/76
[2024-11-11 03:07] VITALS: BP 135/76
[2024-11-11 05:04] LABS: BASOPHILS ABSOLUTE AUTO 0.01 K/mm3 (0.00-0.23); BASOPHILS PERCENT AUTO 0 % (0-2); EOSINOPHILS PERCENT AUTO 0 % (0-6); Hematocrit 42.8 % (37.0-53.0); Hemoglobin 14.9 g/dL (13.5-17.5); IMMATURE GRAN ABSOLUTE AUTO 0.01 K/mm3 (0.00-0.10); IMMATURE GRAN PERCENT AUTO 0 % (0-1); LYMPHOCYTES PERCENT AUTO 15 % (21-46); MONOCYTES ABSOLUTE AUTO 0.19 K/mm3 (0.16-1.47); MONOCYTES PERCENT AUTO 4 % (4-13); Mean Corpuscular HGB 30.5 pg (26.0-34.0); Mean Corpuscular HGB Conc 34.8 g/dL (31.5-36.5); Mean Corpuscular Volume 88 fL (80-100); Mean Platelet Volume 10.2 fL (9.1-12.4); NEUTROPHILS ABSOLUTE AUTO 3.91 K/mm3 (1.96-9.15); NEUTROPHILS PERCENT AUTO 81 % (41-73); Platelet Count 174 K/mm3 (150-400); RDW Coefficient Variation 12.4 % (11.7-14.2); RDW Standard Deviation 40.4 fL (35.1-46.3); Red Blood Cell Count 4.88 M/mm3 (4.30-5.90); White Blood Cell Count 4.82 K/mm3 (4.00-11.30)
--- NOTE | 2024-11-11 05:20 | NUR ---
SHIFT SUMMARY POD # 1 LAP APPY. ABD INCISIONS CDI, OPEN TO AIR WITH EXOFIN. A/OX4 WITH VSS. PAIN MANAGED PER EMAR. UP IN ROOM AND BATHROOM. SERA PO INTAKE. IV SL. IS VOIDING. RESTED WELL T/O NIGHT WITH EYES CLOSED AND RESPIRATIONS EVEN/UNLABORED. WILL GIVE REPORT TO ONCOMING RN.
[2024-11-11 05:37] LABS: Calcium, Blood 8.3 mg/dL (8.5-10.1); Creatinine, Blood 0.83 mg/dL (0.60-1.20); Potassium, Blood 3.8 mmol/L (3.5-5.5)
[2024-11-11 07:30] VITALS: BP 153/84
[2024-11-11] MEDS ORDERED: Atorvastatin 40 MG Tab PO SCH (09:00)
[2024-11-11] MEDS ORDERED: Clopidogrel Bisulfate 75 MG Tab PO SCH (09:00)
[2024-11-11] MEDS ORDERED: Lisinopril 10 MG Tab PO SCH (09:00)
[2024-11-11] MEDS ORDERED: Aspirin 81 MG TabEC PO SCH (09:00)
[2024-11-11] MEDS ORDERED: Isosorbide Mononitrate 30 MG TABCR PO SCH (09:00)
[2024-11-11] MEDS ORDERED: HydroCHLOROthiazide 25 mg Tab PO SCH (09:00)
[2024-11-11] MEDS ORDERED: DOCU100 PO (13:06)
[2024-11-11] MEDS ORDERED: OXAYDO5 M1 PO (13:09)
--- NOTE | 2024-11-11 13:33 | NUR ---
DISCHARGE:PT IS VOIDING, WALKING AND TOLERATING DIET. MINIMAL PAIN. PACKET PRINTED AND PT EDUCATED. IV DC'D WNL, TIP INTACT. PT LEFT UNIT ON FOOT AT ABOUT 1330, DENIED NEED FOR WHEELCHAIR
== END 2024-11-11 13:45 | disposition home or self-care (01) ==
LOC: ER 19:50 → SURS 19:51
PROVIDERS: Family Medicine; Student in an Organized Health Care Education/Training Program; Surgery; ADMIT Student in an Organized Health Care Education/Training Program
PROC: 0FT44ZZ Resection of Gallbladder, Percutaneous Endoscopic Approach (ICD-10-PCS; principal; 2024-11-10 15:30)
PROC: BF13YZZ Fluoroscopy of Gallbladder and Bile Ducts using Other Contrast (ICD-10-PCS; principal; 2024-11-10 15:30)
DX: K80.12 Calculus of gallbladder with acute and chronic cholecystitis without obstruction (principal); E87.6 Hypokalemia; I25.10 Atherosclerotic heart disease of native coronary artery without angina pectoris; I25.2 Old myocardial infarction; I10 Essential (primary) hypertension; E78.5 Hyperlipidemia, unspecified; G47.33 Obstructive sleep apnea (adult) (pediatric); J45.909 Unspecified asthma, uncomplicated; Z87.891 Personal history of nicotine dependence; Z79.82 Long term (current) use of aspirin; Z79.02 Long term (current) use of antithrombotics/antiplatelets; Z79.899 Other long term (current) drug therapy; Z95.5 Presence of coronary angioplasty implant and graft
CPT/HCPCS: 36415; 71046; 71275; 74175; 76705; 80048; 80053; 84484; 85025; 93005; 93010; 94760; 96365; 96367; 96375; 96376; 99285-25; A9270; G0378; J0696; J1100; J1171; J2250; J2270; J2405; J2704; J3010; J3480; J7050; J7120; Q9967

== ENCOUNTER 2025-06-16 06:11 | Day surgery (SDC) | payer BC, OTHER ==
[~2025-06-16] VITALS: Ht 175.3 cm; Wt 102.7 kg
[~2025-06-16 06:11] MED LIST changes: +CLOP75 PO; +DOCU100 PO; +Dexamethasone Sod Phos 10 MG/ML 1ML VIAL ONE; +FentaNYL Citrate 50 MCG/ML 2 ML Injection ONE; +Midazolam HCl 1MG / ML 2ML Vial ONE; +OXAYDO5 M1 PO; +Ondansetron HCl 2 MG / ML 2ML Vial ONE; +Rocuronium Bromide 10 MG/ML 5ML Injection IV ONE; +Sugammadex Sodium 200 MG/2ML SDV (100 MG/ML) ONE
[2025-06-16] MEDS ORDERED: CeFAZolin Sodium 2,000 MG VIAL ONE (06:29)
[2025-06-16] MEDS ORDERED: Ipratropium/Albuterol SulF 2.5-0.5MG/3 ML Amp ONE (06:29)
[2025-06-16] MEDS ORDERED: ALLEGRA ALLERG180 MG PO (06:38)
[2025-06-16] MEDS ORDERED: Bupivacaine 0.5% W/EPI 1:200000 SDV 30 ML Vial ONE (06:43)
[2025-06-16] MEDS ORDERED: Citric Acid/Sodium Citrate 30 ML BTL ONE (06:49)
--- NOTE | 2025-06-16 07:31 | NUR ---
06/16/25 0731 Shrestha, Antonella DUONEB GIVEN IN PREOP PER ORDERS FROM DR CROFT. T/O PERFORMED AT BEDSIDE AT [address] CROFT AND DR CORBIN AT BEDSIDE. POPLITEAL NERVE BLOCK ON R LEG STARTED AT 712 AND ENDED AT 715. PT PLACED ON 3L 02 VIA N/C PRIOR TO START OF NERVE BLOCK. SPO2 AND HR MONITORED THROUGHOUT PROCEDURE. PT TOLERATED PROCEDURE WELL.
[2025-06-16] MEDS ORDERED: Phenylephrine HCl 100 MCG/ML-NS 10MLSYR (1MG/10ML) ONE (07:56)
[2025-06-16 08:58] VITALS: BP 145/99
== END 2025-06-16 09:45 | disposition home or self-care (01) ==
LOC: ORSCSDS 06:11
PROVIDERS: Podiatrist Foot & Ankle Surgery
PROC: 0LUN0JZ Supplement Right Lower Leg Tendon with Synthetic Substitute, Open Approach (ICD-10-PCS; principal; 2025-06-16 07:30)
PROC: 0QBL0ZZ Excision of Right Tarsal, Open Approach (ICD-10-PCS; principal; 2025-06-16 07:30)
DX: M76.61 Achilles tendinitis, right leg (principal); M24.571 Contracture, right ankle; I10 Essential (primary) hypertension; I25.2 Old myocardial infarction; I25.10 Atherosclerotic heart disease of native coronary artery without angina pectoris; J44.89 Other specified chronic obstructive pulmonary disease; E78.5 Hyperlipidemia, unspecified; Z87.891 Personal history of nicotine dependence; E66.9 Obesity, unspecified; Z68.33 Body mass index [BMI] 33.0-33.9, adult; Z79.899 Other long term (current) drug therapy; Z79.82 Long term (current) use of aspirin
CPT/HCPCS: 82947; A6253; A9270; C1713; J0166; J0690; J1100; J2250; J2371; J2405; J2704; J3010; J7120

== ENCOUNTER 2025-08-19 06:11 | Observation (INO) | payer BC, OTHER ==
[~2025-08-19] VITALS: Ht 175.3 cm; Wt 102.1 kg
[~2025-08-19 06:11] MED LIST changes: +ALLEGRA ALLERG180 MG PO; -Dexamethasone Sod Phos 10 MG/ML 1ML VIAL ONE; -FentaNYL Citrate 50 MCG/ML 2 ML Injection ONE; -Midazolam HCl 1MG / ML 2ML Vial ONE; -Ondansetron HCl 2 MG / ML 2ML Vial ONE; -Rocuronium Bromide 10 MG/ML 5ML Injection IV ONE; -Sugammadex Sodium 200 MG/2ML SDV (100 MG/ML) ONE
[2025-08-19 07:09] LABS: BASOPHILS ABSOLUTE AUTO 0.06 K/mm3 (0.00-0.23); BASOPHILS PERCENT AUTO 1 % (0-2); EOSINOPHILS ABSOLUTE AUTO 0.48 K/mm3 (0.00-0.68); EOSINOPHILS PERCENT AUTO 8 % (0-6); Hematocrit 43.0 % (37.0-53.0); Hemoglobin 15.2 g/dL (13.5-17.5); IMMATURE GRAN ABSOLUTE AUTO 0.03 K/mm3 (0.00-0.10); IMMATURE GRAN PERCENT AUTO 1 % (0-1); LYMPHOCYTES ABSOLUTE AUTO 2.23 K/mm3 (0.84-5.20); LYMPHOCYTES PERCENT AUTO 35 % (21-46); MONOCYTES ABSOLUTE AUTO 0.73 K/mm3 (0.16-1.47); MONOCYTES PERCENT AUTO 12 % (4-13); Mean Corpuscular HGB Conc 35.3 g/dL (31.5-36.5); Mean Corpuscular Volume 87 fL (80-100); NEUTROPHILS ABSOLUTE AUTO 2.81 K/mm3 (1.96-9.15); NEUTROPHILS PERCENT AUTO 44 % (41-73); NRBC ABSOLUTE 0.00 K/mm3 (0.00-0.02); NRBC Auto 0.0 /100 WBC (0.0-0.2); Platelet Count 174 K/mm3 (150-400); RDW Coefficient Variation 12.5 % (11.7-14.2); RDW Standard Deviation 39.5 fL (35.1-46.3)
[2025-08-19 07:20] LABS: Alanine Aminotransfer (ALT/SGP 37.0 U/L (12-78); Albumin, Blood 3.9 g/dL (3.4-5.0); Albumin/Globulin Ratio 1.1 (0.8-1.8); Anion Gap 10.0 mmol/L (3-11); Aspartate Aminotrans (AST/SGOT 33.0 U/L (12-37); Bilirubin, Total 0.6 mg/dL (0.1-1.0); Blood Urea Nitrogen 21.0 mg/dL (8-24); CO2, Blood 24.0 mmol/L (21-32); Calcium, Blood 8.4 mg/dL (8.5-10.1); Chloride, Blood 108.0 mmol/L (98-108); Creatinine, Blood 0.84 mg/dL (0.60-1.20); Globulin, Blood 3.5 g/dL (2.2-4.0); Glucose, Blood 136.0 mg/dL (70-99); Magnesium, Blood 2.1 mg/dL (1.6-2.4); Potassium, Blood 3.5 mmol/L (3.5-5.5); Sodium, Blood 138.0 mmol/L (136-145); Total Protein, Blood 7.4 g/dL (6.4-8.2)
[2025-08-19] MEDS ORDERED: Ipratropium/Albuterol SulF 2.5-0.5MG/3 ML Amp INH ONE (07:30)
[2025-08-19] MEDS ORDERED: Albuterol 2.5 MG/3 ML VIAL INH SCH ×2 (07:35→09:20)
[2025-08-19 08:27] LABS: Influenza A, PCR NEGATIVE (NEGATIVE); Influenza B, PCR NEGATIVE (NEGATIVE); Resp Syncytial Virus, PCR NEGATIVE (NEGATIVE); SARS-Cov-2 (COVID-19) PCR, MMC NEGATIVE (NEGATIVE)
[2025-08-19] MEDS ORDERED: Ondansetron HCl 2 MG / ML 2ML Vial IV PRN (12:25)
[2025-08-19] MEDS ORDERED: Ipratropium/Albuterol SulF 2.5-0.5MG/3 ML Amp INH SCH (12:25)
[2025-08-19] MEDS ORDERED: FLU VACC TS2025-26(6MOS UP)/PF 45 MCG/0.5 ML SYRINGE IM SCH (12:25)
[2025-08-19] MEDS ORDERED: Metoclopramide HCl 5MG / ML 2ML Vial IV PRN (12:25)
[2025-08-19] MEDS ORDERED: Guaifenesin/Dextromethorphan Syrup 5 ML UDC PO PRN (12:30)
[2025-08-19 13:01] VITALS: BP 132/77
--- NOTE | 2025-08-19 16:29 | NUR ---
ADMIT: PT TO UNIT AT 1301. A/O, AMBULATORY. VSS. CONT PULSE OX IN PLACE. SP02 98% ON RA. LUNGS ARE CLEAR WITH FAINT EXPIRATORY WHEEZE BILATERALLY. PT DENIES SOB, RR WNL AND NO RETRACTIONS. CALL LIGHT IN REACH
--- NOTE | 2025-08-19 17:56 | NUR ---
SUMMARY: NO ACUTE CHANGE SINCE ADMIT, VSS AND A/O. NO RESP DISTRESS, INDEP IN ROOM. USES CALL LIGHT
[2025-08-19 19:47] VITALS: BP 143/87
--- NOTE | 2025-08-19 20:28 | NUR ---
PATIENT TOOK HOME MEDS OF ATORVASTATIN, METOPROLOL, AND ZETIA
[2025-08-20 03:37] VITALS: BP 121/70
[2025-08-20 03:37] LABS: BASOPHILS ABSOLUTE AUTO 0.01 K/mm3 (0.00-0.23); BASOPHILS PERCENT AUTO 0 % (0-2); EOSINOPHILS ABSOLUTE AUTO 0.00 K/mm3 (0.00-0.68); EOSINOPHILS PERCENT AUTO 0 % (0-6); Hematocrit 41.5 % (37.0-53.0); Hemoglobin 15.0 g/dL (13.5-17.5); IMMATURE GRAN ABSOLUTE AUTO 0.05 K/mm3 (0.00-0.10); IMMATURE GRAN PERCENT AUTO 1 % (0-1); LYMPHOCYTES ABSOLUTE AUTO 1.10 K/mm3 (0.84-5.20); LYMPHOCYTES PERCENT AUTO 11 % (21-46); MONOCYTES ABSOLUTE AUTO 0.25 K/mm3 (0.16-1.47); MONOCYTES PERCENT AUTO 2 % (4-13); Mean Corpuscular HGB Conc 36.1 g/dL (31.5-36.5); Mean Corpuscular Volume 87 fL (80-100); NEUTROPHILS ABSOLUTE AUTO 8.92 K/mm3 (1.96-9.15); NEUTROPHILS PERCENT AUTO 86 % (41-73); NRBC ABSOLUTE 0.00 K/mm3 (0.00-0.02); NRBC Auto 0.0 /100 WBC (0.0-0.2); Platelet Count 197 K/mm3 (150-400); RDW Coefficient Variation 12.5 % (11.7-14.2); RDW Standard Deviation 40.0 fL (35.1-46.3)
[2025-08-20 03:56] LABS: Anion Gap 11.0 mmol/L (3-11); Blood Urea Nitrogen 18.0 mg/dL (8-24); CO2, Blood 24.0 mmol/L (21-32); Calcium, Blood 8.7 mg/dL (8.5-10.1); Chloride, Blood 105.0 mmol/L (98-108); Creatinine, Blood 0.77 mg/dL (0.60-1.20); Glucose, Blood 163.0 mg/dL (70-99); Potassium, Blood 3.6 mmol/L (3.5-5.5); Sodium, Blood 136.0 mmol/L (136-145)
--- NOTE | 2025-08-20 06:18 | NUR ---
SHIFT SUMMARY PATIENT RESTED PEACEFULLY OVERNIGHT. NO ACUTE EVENTS. VITALS STABLE.
[2025-08-20 07:09] VITALS: BP 132/79
[2025-08-20] MEDS ORDERED: Enoxaparin 40 MG/0.4 ML SYR SC SCH (09:00)
[2025-08-20] MEDS ORDERED: Isosorbide Mononitrate 30 MG TABCR PO SCH (09:00)
[2025-08-20] MEDS ORDERED: Q-Tussin100 MG/5 M PO (12:07)
[2025-08-20] MEDS ORDERED: AZIT500 PO (12:07)
[2025-08-20] MEDS ORDERED: IPRAT-ALBUT 0.5-3 ML INH (12:08)
[2025-08-20] MEDS ORDERED: PRED20 PO (12:09)
== END 2025-08-20 12:30 | disposition home or self-care (01) ==
LOC: ER 06:11 → SURS 06:12
PROVIDERS: Student in an Organized Health Care Education/Training Program; ADMIT Internal Medicine
DX: J44.1 Chronic obstructive pulmonary disease with (acute) exacerbation (principal); J44.0 Chronic obstructive pulmonary disease with (acute) lower respiratory infection; J20.9 Acute bronchitis, unspecified; I25.10 Atherosclerotic heart disease of native coronary artery without angina pectoris; I25.2 Old myocardial infarction; I10 Essential (primary) hypertension; E78.5 Hyperlipidemia, unspecified; G47.33 Obstructive sleep apnea (adult) (pediatric); E66.9 Obesity, unspecified; Z68.33 Body mass index [BMI] 33.0-33.9, adult; Z87.891 Personal history of nicotine dependence; Z95.5 Presence of coronary angioplasty implant and graft; Z79.82 Long term (current) use of aspirin; Z79.899 Other long term (current) drug therapy; Z90.49 Acquired absence of other specified parts of digestive tract
CPT/HCPCS: 36415; 71046; 80048; 80053; 83735; 83880; 85025; 85379; 87637; 93005; 93010; 94640; 94645; 94664; 94760; 94762; 96365; 96375; 96376; 99285-25; A9270; G0378; J0456; J2919; J7050